=== PATIENT | female | born 1985 | race Caucasian/White ===

== ENCOUNTER 2020-09-05 08:42 | Emergency (ER) | payer OTHER ==
[2020-09-05] MEDS ORDERED: HYDROcodone/Acetaminophen 5/325 mg Tablet ONE (09:28)
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
== END 2020-09-05 09:39 | disposition home or self-care (01) ==
LOC: MADERS 08:42
DX: S00.83XA Contusion of other part of head, initial encounter (principal); F17.210 Nicotine dependence, cigarettes, uncomplicated; V89.2XXA Person injured in unspecified motor-vehicle accident, traffic, initial encounter
CPT/HCPCS: 70450